=== PATIENT | male | born 1995 | race Caucasian/White ===

== ENCOUNTER 2016-12-20 17:51 | Emergency (ER) | payer BC ==
[2016-12-20 17:58] VITALS: RESP 18
--- NOTE | 2016-12-20 18:09 | ED ---
Psych HPI - General Source: patient, RN notes reviewed Mode of arrival: ambulatory Limitations: no limitations <Ar Armstrong - Last Filed: 12/20/16 18:07> <Ramona Schulz - Last Filed: 12/20/16 21:16> - General Chief Complaint: Psychiatric Symptoms Stated Complaint: mental health Time Seen by Provider: 12/20/16 18:03 - History of Present Illness Initial Comments: This a 21-year-old male presents emergency Department with chief complaint depression suicidal ideation. Patient states her last 5 months felt suicidal has no exact plan to hurt himself. He states that he is trying to cut his right thigh with this he he did not break the skin. Patient states he has seen psychiatrists ulcers in the past and was on medication but states is not on any current medications. Patient does abuse Adderall, cocaine and marijuana. Patient states he has not used any in a few days. Patient denies any physical complaints denies any chest pain, shortness breath, headache, dizziness denies any alcohol abuse no homicidal ideation. (Ar Armstrong) Review of Systems ROS Other: All systems not noted in ROS Statement are negative. <Ar Armstrong - Last Filed: 12/20/16 18:07> ROS Other: All systems not noted in ROS Statement are negative. <Ramona Schulz - Last Filed: 12/20/16 21:16> ROS Statement: Those systems with pertinent positive or pertinent negative responses have been documented in the HPI. Past Medical History Additional Past Medical History / Comment(s): depression bipolar History of Any Multi-Drug Resistant Organisms: None Reported Past Surgical History: No Surgical Hx Reported Past Psychological History: Bipolar, Depression Smoking Status: Current every day smoker Past Alcohol Use History: None Reported Past Drug Use History: Cocaine, Marijuana, Prescription Drug Abuse <Ar Armstrong - Last Filed: 12/20/16 18:07> General Exam Limitations: no limitations General appearance: alert, in no apparent distress Head exam: Present: atraumatic, normocephalic, normal inspection Eye exam: Present: normal appearance, PERRL, EOMI. Absent: scleral icterus, conjunctival injection, periorbital swelling ENT exam: Present: normal exam, normal oropharynx, mucous membranes moist, TM's normal bilaterally, normal external ear exam Neck exam: Present: normal inspection, full ROM. Absent: tenderness, meningismus, lymphadenopathy Respiratory exam: Present: normal lung sounds bilaterally. Absent: respiratory distress, wheezes, rales, rhonchi, stridor Cardiovascular Exam: Present: regular rate, normal rhythm, normal heart sounds. Absent: systolic murmur, diastolic murmur, rubs, gallop, clicks GI/Abdominal exam: Present: soft, normal bowel sounds. Absent: distended, tenderness, guarding, rebound, rigid Neurological exam: Present: alert, oriented X3, CN II-XII intact Psychiatric exam: Present: depressed Skin exam: Present: warm, dry, intact, normal color. Absent: rash <Ar Armstrong - Last Filed: 12/20/16 18:07> Medical Decision Making <Ar Armstrong - Last Filed: 12/20/16 18:07> <Ramona Schulz - Last Filed: 12/20/16 21:16> - Medical Decision Making This case was signed out to me by MARY Carson. Psychiatry did evaluate the patient and they are going to discharge the patient home with a referral sheet. Patient does contract to safety. At this time there is no suicidal or homicidal ideations. Patient will be discharged into the mother's care and does agree to return if any of these thoughts occur. Patient mother on agreement plan all questions have been answered. They will be discharged. ( Ramona Schulz) - Lab Data Lab Results 12/20/16 Range/Units 19:00 Urine Opiates Screen Not Detected (NotDetected) Ur Oxycodone Screen Not Detected (NotDetected) Urine Methadone Screen Not Detected (NotDetected) Ur Propoxyphene Screen Not Detected (NotDetected) Ur Barbiturates Screen Not Detected (NotDetected) U Tricyclic Antidepress Not Detected (NotDetected) Ur Phencyclidine Scrn Not Detected (NotDetected) Ur Amphetamines Screen Detected H (NotDetected) U Methamphetamines Scrn Not Detected (NotDetected) U Benzodiazepines Scrn Not Detected (NotDetected) Urine Cocaine Screen Not Detected (NotDetected) U Marijuana (THC) Screen Detected H (NotDetected) Disposition <Ar Armstrong - Last Filed: 12/20/16 18:07> Time of Disposition: 21:16 <Ramona Schulz - Last Filed: 12/20/16 21:16> Clinical Impression: Depression Disposition: HOME SELF-CARE Condition: Stable Instructions: Depression (ED) Additional Instructions: If you developed any suicidal or homicidal ideation please return to the emergency Department immediately. Please follow up with family doctor if symptoms have not improved over the next two days. Please return to the emergency room if your symptoms increase or worsen or for any other concerns. Referrals: Joe Lau DO [Primary Care Provider] - 1-2 days
[2016-12-20 21:29] VITALS: BP 130/65; PULSE 92; TEMP 98.4
== END 2016-12-20 21:20 | disposition home or self-care (01) ==
LOC: EC 17:51
DX: F32.9 Major depressive disorder, single episode, unspecified (principal); F17.200 Nicotine dependence, unspecified, uncomplicated
CPT/HCPCS: 80306; 82075; 99285

== ENCOUNTER 2018-06-03 19:21 | Emergency (ER) | payer BC ==
--- NOTE | 2018-06-03 21:05 | ED ---
Psych HPI - General Chief Complaint: Psychiatric Symptoms Stated Complaint: Mental Health Time Seen by Provider: 06/03/18 19:37 Source: patient Mode of arrival: ambulatory - History of Present Illness Initial Comments: 22-year-old male patient presents to the emergency department today for evaluation of depression and suicidal ideation. Patient states he has been depressed for many years and has also had thoughts of suicide for many years. Patient states that he is hoping to be started on an antidepressant medication today. States that he does not have any specific plan to take his life and has had no change to his symptoms. States that his physical health is [place] he now wants to work on his mental health. Denies currently receiving outpatient counseling or therapy. States he hasn't had antidepressant medication at in the last 2 years. Patient states he did attempt to commit suicide approximately 5 years ago but has no recent attempts. Denies any hallucinations. Denies any alcohol or drug use. Denies any current physical symptoms or concerns. - Related Data Home Medications Medication Instructions Recorded Confirmed No Known Home Medications 12/20/16 06/03/18 Allergies Allergy/AdvReac Type Severity Reaction Status Date / Time No Known Allergies Allergy Verified 06/03/18 20:11 Review of Systems ROS Statement: Those systems with pertinent positive or pertinent negative responses have been documented in the HPI. ROS Other: All systems not noted in ROS Statement are negative. Past Medical History Additional Past Medical History / Comment(s): depression bipolar History of Any Multi-Drug Resistant Organisms: None Reported Past Surgical History: No Surgical Hx Reported Past Psychological History: Bipolar, Depression, PTSD Smoking Status: Former smoker Past Alcohol Use History: Occasional Past Drug Use History: Cocaine, Marijuana, Prescription Drug Abuse General Exam Limitations: no limitations General appearance: alert, in no apparent distress, other (This is a well- developed, well-nourished adult male patient in no acute distress. Vital signs upon presentation are temperature 98.3F, pulse 92, respirations 21, blood pressure 130/86, pulse ox 97% on room air.) Eye exam: Present: normal appearance, PERRL, EOMI. Absent: scleral icterus, conjunctival injection, periorbital swelling Respiratory exam: Present: normal lung sounds bilaterally. Absent: respiratory distress, wheezes, rales, rhonchi, stridor Cardiovascular Exam: Present: regular rate, normal rhythm, normal heart sounds. Absent: systolic murmur, diastolic murmur, rubs, gallop, clicks GI/Abdominal exam: Present: soft, normal bowel sounds. Absent: distended, tenderness, guarding, rebound, rigid Neurological exam: Present: alert, oriented X3, CN II-XII intact Psychiatric exam: Present: normal affect, normal mood Skin exam: Present: warm, dry, intact, normal color. Absent: rash Course Vital Signs 06/03/18 06/03/18 19:24 21:34 Temperature 98.3 F 98.6 F Pulse Rate 92 72 Respiratory 21 18 Rate Blood Pressure 130/86 120/80 O2 Sat by Pulse 97 98 Oximetry Medical Decision Making - Medical Decision Making 22-year-old male patient presented to the emergency department today for evaluation of depression and suicidal ideation. Symptoms are unchanged over the last couple of years. Patient is requesting antidepressant medication. He was seen and evaluated by emergency psychiatric services. They did form an outpatient plan for the patient. He does agree to follow-up with his primary care physician to discuss antidepressant medication use. He is instructed to follow up for outpatient counseling. Patient denies any current suicidal plan, denies any change to his symptoms. It is felt he is safe for discharge at this time to Return parameters were discussed in detail. He verbalizes understanding and agrees with this plan. Disposition Clinical Impression: Depression Disposition: HOME SELF-CARE Condition: Good Instructions: Depression (ED) Additional Instructions: Follow up with your primary care physician for recheck in 1-2 days. Follow up with outpatient mental health services as directed. Return to the emergency department immediately for any new, worsening or concerning symptoms. Is patient prescribed a controlled substance at d/c from ED?: No Referrals: Joe Lau DO [Primary Care Provider] - 1-2 days Time of Disposition: 21:05
[2018-06-03 21:35] VITALS: BP 120/80; PULSE 72; RESP 18; TEMP 98.6
== END 2018-06-03 21:15 | disposition home or self-care (01) ==
LOC: EC 19:21
DX: F32.9 Major depressive disorder, single episode, unspecified (principal); Z87.891 Personal history of nicotine dependence
CPT/HCPCS: 82075; 99284

== ENCOUNTER 2022-04-02 18:28 | Inpatient (IN) | payer BC, OTHER ==
--- NOTE | 2022-04-02 20:38 | ED ---
General Adult HPI - General Chief complaint: Psychiatric Symptoms Stated complaint: suicidal Time Seen by Provider: 04/02/22 20:02 Source: patient, RN notes reviewed Mode of arrival: ambulatory Limitations: no limitations - History of Present Illness Initial comments: 26-year-old male presents to the emergency department for mental health evaluation. Patient states he is feeling hopeless and lost. Patient reports self harm today in which he put the strap of his purse around his neck while in the presence of his sister. States he was frustrated and overwhelmed; vigorously scratched his chest and frequently bites his hands in these situations. Patient reports frequent suicidal thoughts, but has not previously attempted to harm himself. Is not working. Does not have any meaningful relationships. Does have family, though feels that their "tough love" approach is not effective. States he does not have a PCP or mental health provider. Does not take any medicines daily. Uses marijuana regularly. Denies any current drug or alcohol abuse. - Related Data Home Medications Medication Instructions Recorded Confirmed No Known Home Medications 12/20/16 06/03/18 Allergies Allergy/AdvReac Type Severity Reaction Status Date / Time No Known Allergies Allergy Verified 04/03/22 04:47 Review of Systems ROS Statement: Those systems with pertinent positive or pertinent negative responses have been documented in the HPI. ROS Other: All systems not noted in ROS Statement are negative. Past Medical History Additional Past Medical History / Comment(s): depression bipolar History of Any Multi-Drug Resistant Organisms: None Reported Past Surgical History: No Surgical Hx Reported Past Psychological History: Bipolar, Depression, PTSD Smoking Status: Current every day smoker Past Alcohol Use History: Occasional Past Drug Use History: Cocaine, Marijuana, Prescription Drug Abuse General Exam Limitations: no limitations General appearance: alert, in no apparent distress Head exam: Present: atraumatic, normocephalic, normal inspection Eye exam: Present: normal appearance, PERRL, EOMI. Absent: scleral icterus, conjunctival injection, periorbital swelling, periorbital tenderness Neck exam: Present: other (superficial abrasion on the left side of the neck; no swelling). Absent: tenderness, meningismus, full ROM Respiratory exam: Present: normal lung sounds bilaterally. Absent: respiratory distress, wheezes, rales, rhonchi, stridor, chest wall tenderness Cardiovascular Exam: Present: regular rate, normal rhythm, normal heart sounds. Absent: systolic murmur, diastolic murmur, rubs, gallop, clicks GI/Abdominal exam: Present: soft, normal bowel sounds. Absent: distended, tenderness, guarding, rebound, rigid Extremities exam: Present: normal capillary refill, other (has reddened areas on bilateral hands consistent with repetitive irritation) Neurological exam: Present: alert, oriented X3, normal gait Psychiatric exam: Present: anxious Skin exam: Present: warm, dry, normal color, abrasion (multiple superificial abrasions on chest wall) Course Vital Signs 04/02/22 04/02/22 19:51 20:05 Temperature 97.8 F 97.9 F Pulse Rate 88 74 Respiratory 16 16 Rate Blood Pressure 125/86 122/84 O2 Sat by Pulse 97 100 Oximetry - Reevaluation(s) Reevaluation #1: 04/02/22 21:06 Able tolerate oral intake without difficulty. Abrasions on chest and neck remain superficial. No swelling or airway concerns. Medical Decision Making - Medical Decision Making This is an anxious 26-year-old who presents to the emergency department for mental health evaluation. Upon exam, patient is restless and appears frustrated. Physical exam findings reveal multiple areas of superficial abrasions on the chest wall, neck, and bilateral hands. Wounds were superficial and did not require any treatment. Patient states these are self induced due to an inability to cope with stress. Reports attempting self-harm today therefore came to the emergency department seeking help. He is cooperative with plan of care. Drug screen was positive for marijuana. Alcohol is negative. Covid is not detected. Patient was medically cleared for psychiatric evaluation. Patient was admitted to the mental health unit for further evaluation and treatment. Attending: Mirna. - Lab Data Result diagrams: 04/03/22 10:22 04/03/22 10:22 Lab Results 04/02/22 04/03/22 Range/Units 23:47 00:52 Urine Opiates Screen Not Detected (NotDetected) Ur Oxycodone Screen Not Detected (NotDetected) Urine Methadone Screen Not Detected (NotDetected) Ur Propoxyphene Screen Not Detected (NotDetected) Ur Barbiturates Screen Not Detected (NotDetected) U Tricyclic Antidepress Not Detected (NotDetected) Ur Phencyclidine Scrn Not Detected (NotDetected) Ur Amphetamines Screen Not Detected (NotDetected) U Methamphetamines Scrn Not Detected (NotDetected) U Benzodiazepines Scrn Not Detected (NotDetected) Urine Cocaine Screen Not Detected (NotDetected) U Marijuana (THC) Screen Detected H (NotDetected) Coronavirus (PCR) Not Detected (Not Detectd) Disposition Clinical Impression: Abrasion of chest wall, Suicidal ideation Disposition: TRANSFER TO PSYCH HOSP/UNIT Condition: Serious Decision Date: 04/03/22 Decision Time: 01:55
[2022-04-03 00:04] LABS: Amphetamine Screen,Urine Not Detected (NotDetected); Barbiturate Screen,Urine Not Detected (NotDetected); Benzodiazepines Screen,Urine Not Detected (NotDetected); Cocaine Screen,Urine Not Detected (NotDetected); Methadone Screen, Urine Not Detected (NotDetected); Opiate Screen,Urine Not Detected (NotDetected); Oxycodone Screen, Urine Not Detected (NotDetected); Phencyclidine Screen,Urine Not Detected (NotDetected); Tricyclic Antidepressant,Urine Not Detected (NotDetected); Urn Cannabinoid Scrn Detected (NotDetected)
[2022-04-03] MEDS ORDERED: MAGNESIUM HYDROXIDE 2,400 MG/10 ML CUP PO PRN (01:59)
[2022-04-03] MEDS ORDERED: HALOPERIDOL LACTATE 5 MG/ML 1 ML VIAL IM PRN (01:59)
[2022-04-03] MEDS ORDERED: LORazepam 1 MG TAB PO PRN (01:59)
[2022-04-03] MEDS ORDERED: ACETAMINOPHEN TAB 325 MG TAB PO PRN (01:59)
[2022-04-03] MEDS ORDERED: MAG HYDROX/AL HYDROX/SIMETH 30 ML CUP PO PRN (01:59)
[2022-04-03] MEDS ORDERED: LORazepam 1 MG/0.5 ML VIAL IM PRN (02:05)
[2022-04-03] MEDS ORDERED: haloperidoL 5 MG TAB PO PRN (02:06)
[2022-04-03 11:43] LABS: Basophils # (A) 0.1 k/uL (0-0.2); Basophils % (A) 1 %; Eosinophils # (A) 0.3 k/uL (0-0.7); Eosinophils % (A) 5 %; HCT 44.8 % (39.0-53.0); HGB 15.7 gm/dL (13.0-17.5); Lymphocytes # (A) 1.6 k/uL (1.0-4.8); Lymphocytes % (A) 25 %; MCH 31.8 pg (25.0-35.0); MCHC 35.2 g/dL (31.0-37.0); MCV 90.5 fL (80.0-100.0); Mean Platelet Volume 8.1; Monocytes # (A) 0.6 k/uL (0-1.0); Monocytes % (A) 9 %; Neutrophils # (A) 3.5 k/uL (1.3-7.7); Neutrophils % (A) 56 %; Platelet Count 244 k/uL (150-450); RBC 4.95 m/uL (4.30-5.90); RDW 12.4 % (11.5-15.5); WBC 6.3 k/uL (3.8-10.6)
[2022-04-03 11:59] LABS: ALT 27 U/L (4-49); AST 55 U/L (17-59); African American GFR (CKD) >90 (>60 ml/min/1.73 sqM); Albumin 5.2 g/dL (3.5-5.0); Alkaline Phosphatase 68 U/L (38-126); Anion Gap 10 mmol/L; Blood Urea Nitrogen 12 mg/dL (9-20); Calcium 9.2 mg/dL (8.4-10.2); Carbon Dioxide 25 mmol/L (22-30); Chloride 103 mmol/L (98-107); Glucose 92 mg/dL (74-99); Non-African American GFR(CKD) 87 (>60 ml/min/1.73 sqM); Sodium 138 mmol/L (137-145); Total Bilirubin 3.5 mg/dL (0.2-1.3)
--- NOTE | 2022-04-03 13:23 | P.CONS ---
History of Present Illness - Reason for Consult Consult date: 04/03/22 Medical management Requesting physician: Joe Haq - Chief Complaint Depressed, suicidal - History of Present Illness This is a 26-year-old patient, follows a Dr. Lau. Patient was living with his cousin. Silviano, unsure when released from here, that he will go. Patient reported the ER feeling hopeless and lost. He reported self-harm. With the strap office percent on his neck by the presence of her sister. He was frustrated and overwhelmed. Vigorously scratched his chest infrequently but has had. Having suicidal thoughts. Patient not employed. Does marijuana. Denies any other drugs. Review of systems: GEN.: None EYES: None HEENT: None NECK: None RESPIRATORY: None CARDIOVASCULAR: None GASTROINTESTINAL: Heartburn GENITOURINARY: None MUSCULOSKELETAL: None LYMPHATICS: None HEMATOLOGICAL: None PSYCHIATRY: Depressed NEUROLOGICAL: No sleeping well Past medical history to include: Bipolar depression, PTSD Social history: Currently vaping marijuana. In the past has done cocaine in [facility]. Not employed. Currently staying with his cousin Family history: Reviewed, noncontributory to presentation Physical examination: VITAL SIGNS: 97.4, 84, 16, 11 8 x 58, 98% room air] GENERAL: BMI 24.2, sitting up in chair comfortable. EYES: Pupils equal. Conjunctiva normal. HEENT: External appearance of nose and ears normal, oral cavity grossly normal. NECK: JVD not raised; masses not palpable. HEART: First and second heart sounds are normal; no edema. LUNGS: Respiratory rate normal; clear to auscultation. ABDOMEN: Soft, nontender, liver spleen not palpable, no masses palpable. PSYCH: Alert and oriented x3; mood and affect bit anxiousl. MUSCULOSKELETAL:No Clubbing/cyanosis;muscles-grossly intact NEUROLOGICAL: Cranial nerves grossly intact; no facial asymmetry, power and sensation grossly intact. LYMPHATICS: No lymph nodes palpable in the axilla and neck INVESTIGATIONS, reviewed in the clinical context: White count 6.3 bun 15.7 platelets 244 potassium 4 creatinine 1.16 Urine culture positive for marijuana COVID 19 PCR: Not detected Assessment and plan: -Bipolar, depressed with suicidal ideation Follow medications with psychiatry -Insomnia secondary to depression Should improve with antidepressants -GERD Pepcid -Recreational use of marijuana Discussed with patient. Pepcid. Antidepressants per psychiatry. Discussed with patient about getting a job. Encouraged. Patient should follow up with PCP upon discharge Thank you Past Medical History Additional Past Medical History / Comment(s): depression bipolar History of Any Multi-Drug Resistant Organisms: None Reported Past Surgical History: No Surgical Hx Reported Past Psychological History: Bipolar, Depression, PTSD Smoking Status: Vaper Past Alcohol Use History: Occasional Past Drug Use History: Cocaine, Marijuana, Prescription Drug Abuse Medications and Allergies Home Medications Medication Instructions Recorded Confirmed Type No Known Home Medications 12/20/16 06/03/18 History Allergies Allergy/AdvReac Type Severity Reaction Status Date / Time No Known Allergies Allergy Verified 04/03/22 04:47 Physical Exam Vitals: Vital Signs Temp Pulse Pulse Resp BP BP Pulse Ox 04/03/22 02:38 97.4 F L 84 16 118/58 98 04/02/22 20:05 97.9 F 74 16 122/84 100 04/02/22 19:51 97.8 F 88 16 125/86 97 Intake and Output 04/02/22 04/03/22 04/03/22 22:59 06:59 14:59 Other: Weight 72.575 kg 74.2 kg Results CBC & Chem 7: 04/03/22 10:22 04/03/22 10:22 Labs: Abnormal Lab Results - Last 24 Hours (Table) 04/02/22 Range/Units 23:47 U Marijuana (THC) Screen Detected H (NotDetected)
[2022-04-03 14:30] LABS: Appearance,Urine Clear (Clear); Bilirubin,Urine Negative (Negative); Blood,Urine Negative (Negative); Color,Urine Yellow; Glucose,Urine (UA) Negative (Negative); Ketones,Urine 1+ (Negative); Leukocyte Esterase,Urine Negative (Negative); Nitrite,Urine Negative (Negative); Protein,Urine Negative (Negative); Specific Gravity,Urine 1.013 (1.001-1.035); Urobilinogen,Urine <2.0 mg/dL (<2.0)
[2022-04-03 16:26] LABS: Chol/HDL Ratio 3.82 Ratio; LDL Cholesterol,Calculated 113.2 mg/dL (0.0-131.0); VLDL Calculation 16.72 mg/dL (5.00-40.00)
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
[2022-04-03] MEDS: QUEtiapine 25 MG TAB PO SCH (20:58)
[2022-04-03] MEDS ORDERED: ESCITALOPRAM 5 MG TAB PO SCH (21:00)
[2022-04-04] MEDS: QUEtiapine 25 MG TAB PO SCH (21:01)
[2022-04-04] MEDS: ESCITALOPRAM 10 MG TAB PO SCH (21:01)
--- NOTE | 2022-04-04 21:30 | P.PN ---
Progress Note - Text Progress Note Date: 04/04/22 Interval history: Patient was seen attending group today and was directable and agreeable to speak with sign writer hand. He reports improving mood today and improved sleep since starting the Seroquel last night. He is still anxious. At this time patient denies any suicidal or homicidal ideation, intent or plan. Denies any auditory or visual hallucinations. Patient denies any side effects from the medications and has been compliant with meds. Mental status exam: General Appearance: Patient appears to be stated age, slender, tattoos, long hair, improving hygiene and grooming, has a healing red ligature lizbeth on his neck. Behavior: Patient is seated without any agitated behavior. He is pleasant and cooperates. Speech: Patient's speech is fluent and non-pressured. Mood/Affect: Mood is improving today, affect is bright. Suicidality/Homicidality: Patient denies having any homicidal ideation intent or plan. Denies any suicidal ideations intent or plan now, but is s/p suicide attempt by strangulation. Perceptions: Patient denies any visual hallucinations and denies any auditory hallucinations. Though content/process: There is no evidence of any delusional thought content and thought process is linear and goal-directed. Memory and concentration: AOX3, grossly intact for the purposes of this session. Judgment and insight: improving mildly Assessment/Plan: Continue with current diagnosis. Patient continues to meet criteria for inpatient psychiatric admission for symptom stabilization and safety. Increase Lexapro to 10 mg QHS for anxiety/depression. Monitor for medication compliance and for any psychotropic medication side effects. Will continue to monitor ongoing response to treatment. Encouraged participation in milieu.
--- NOTE | 2022-04-05 16:10 | P.PN ---
Progress Note - Text Progress Note Date: 04/05/22 Interval History: Patient was seen taking part in group today and was directable and agreeable to speak with television writer in the office. Patient states that he is doing fairly well on the medications at this time. He states that his anxiety and depression have been improving. He claims that he is not reporting any suicidal thoughts at this time. He reflected back on what had occurred prior to coming into the hospital and the incidents that happened. He states that he is getting better care at this hospital than the previous one. He states that he is going to groups and trying to participate. He had a soft tone of voice however didn't sound fairly optimistic. Claims that he is sleeping better at this time with the Seroquel. At this time patient denies any suicidal or homical ideations, intent or plan. Patient denies any auditory, visual hallucinations and denies any paranoia or delusions. Patient denies any side effects from the medications and has been compliant with meds. Mental Status Exam: General Appearance: Patient appears to be stated age, slender, tattoos, long hair, fair hygiene and grooming. Behavior: Patient is seated without any agitated behavior. He is pleasant , improving Speech: Patient's speech is fluent and non-pressured. Mood/Affect: Patient reports their mood is improving mildly, affect is appropriate Suicidality/Homicidality: Patient denies having any homicidal ideation intent or plan. Denies any suicidal ideations intent or plan now Perceptions: Patient denies any visual hallucinations and denies any auditory hallucinations. Though content/process: There is no evidence of any delusional thought content and thought process is linear and goal-directed. Memory and concentration: AOX3, grossly intact for the purposes of this session Judgment and insight: Fair IMPRESSIONS: Major depressive disorder, recurrent without psychotic features Generalized anxiety disorder with panic attacks Cannabis use disorder, moderate nicotine dependence Plan: -Patient continues to meet criteria for inpatient psychiatric admission for symptom stabilization and safety. Patient has signed adult voluntary form and medication consent and was placed in patient's chart. -Medications: continue Lexapro 10 mg QHS for anxiety/depression, Seroquel 25 mg QHS for sleep/mood stabilization -When necessary Ativan and Haldol for agitation/aggression. -NRT - nicotine patch -SW on board for discharge planning. Encouraged the patient to participate in milieu. Likely discharge tomorrow if patient continues to improve.
[2022-04-05] MEDS: ESCITALOPRAM 10 MG TAB PO SCH (21:08)
[2022-04-05] MEDS: QUEtiapine 25 MG TAB PO SCH (21:08)
[2022-04-06 06:26] VITALS: BP 111/61; PULSE 56; RESP 17; TEMP 98.7
--- NOTE | 2022-04-06 09:37 | P.DS ---
Providers Date of admission: 04/03/22 01:54 Expected date of discharge: 04/06/22 Attending physician: Joe Haq MD Consults: 04/03/22 01:59 Consult Physician Routine Consulting Provider: Rick Torres Consult Reason/Comments: H&P for mental health admission Do you want consulting provider notified?: Yes, Notify in am Primary care physician: Joe Lau - Discharge Diagnosis(es) (1) Major depressive disorder without psychotic features Current Visit: Yes Status: Acute Priority: High (2) Generalized anxiety disorder Current Visit: Yes Status: Acute Priority: Medium (3) Cannabis use disorder, moderate, dependence Current Visit: Yes Status: Acute Priority: Medium (4) Nicotine dependence Current Visit: Yes Status: Acute Priority: Low Hospital Course: Admission HPI: Admission note was completed by Dr Mitchell "Patient is a 26 year old single male with history of depression who attempted suicide. Patient presented to the hospital Per EPS notes, "Presented to [facility] after attempting to strangle self with purse string and attempting to harm self by scratching and biting self. Ligatures lorenzo are noted on neck and multiple scratches to chest. Patient anxious and tearful, stating has hopping from Mom's house to cousins house feeling overwhelmed as family does not want him and he is stuck and cannot move forward. Patient reports depression as a 9/10 and with constant suicidal thoughts. Patient has no goals, and hopeless at this time. Also reports to this music writer that he is bisexual and is constantly bullied and feels is paranoid that someone will hurt or want to kill him." He reports he got into a fight with his cousin who he is living with because they feel they have a toxic household; he reports he got angry. He reports his mood is "compliant" and somewhat depressed, lost interest in working, difficulty concentrating, difficulty falling asleep, fair energy and motivation, fair appetite. He reports panic attacks with tingling/fuzzy, short of breath, sweating, heart pounding, feeling like he's going to (only when in a car), racing thoughts. He tends to worry, difficult to control worries, difficulty falling asleep, restless/on edge, muscle tension, easily fatigued. Patient denies any suicidal or homicidal ideation, intent or plan. At this time patient denies any auditory or visual hallucinations. Patient denies any flight of ideas racing thoughts and increased in goal directed behavior. UDS positive for marijuana. He smokes marijuana daily since he was 16 year old, smokes all day. He vapes nicotine. He denies alcohol use currently, reports he stopped drinking about 2 months ago. He has tried cocaine in the past but not regular use." Hospital course: Upon admission to the unit patient was directable and agreeable to commence treatment and signed adult voluntary form . Patient got along well with other patients on the unit and followed unit protocol. Patient was compliant with the medications and denied any side effects throughout hospital course. Patient was started on Lexapro 10 mg daily at bedtime for anxiety/mood, Seroquel 25 mg daily at bedtime for insomnia/mood stabilization. Patient spoke of his stressors and engaged in therapy both group and individual. Patient was also seen by medical team for history and physical exam. Throughout the course of the hospitalization patient gradually improved with regards to mood, anxiety, sleep and became more future oriented with improved insight and judgment. On the day of discharge patient denied any suicidal or homicidal ideations intent or plan denied any auditory or visual hallucinations. Patient endorsed wanting to live for his future and his passions. The patient denied any access to guns or weapons. Patient denied any paranoia and did not endorse any delusions. Patient does have a significant history of substance abuse and was counseled on abstaining from all substances including alcohol and marijuana. Patient was also counseled on the medications and need for regular compliance and was encouraged to follow-up with their outpatient appointment for mental health and also for primary care. Prior to discharge a family meeting will be arranged by social organization professor to answer any questions and ensure safety upon discharge. Mental status exam: General Appearance: Patient appears to have glasses, longer hair, stated age is alert, pleasant, and cooperative. Patient is in no acute distress and has improved hygiene and grooming Behavior: Patient is calmly seated without any agitated behavior. Speech: Patient's speech is fluent and nonpressured. Mood/Affect: Patient reports their mood is "better", affect is congruent and euthymic. Suicidality/Homicidality: Patient denies having any suicidal or homicidal ideation intent or plan. Perceptions: Patient denies any auditory or visual hallucinations. Though content/process: There is no evidence of any delusional thought content and thought process is linear and goal-directed. more future oriented Memory and concentration: AOX3, grossly intact for the purposes of this session. Can spell "WORLD" backwards correctly. Judgment and insight: improved with guarded prognosis Impression: Major depressive disorder, recurrent without psychotic features Generalized anxiety disorder Cannabis use disorder moderate dependence Nicotine dependence Plan: -Continue with discharge today as patient has improved and stabilized psychiatrically and is not currently an imminent threat to himself and/or others. -Continue medications: Lexapro 10 mg daily at bedtime for mood/anxiety, Seroquel 25 mg daily at bedtime for mood stabilization/sleep. -Patient was counseled on the need for medication compliance and appropriate follow-up at mental health and also primary care for medical issues. Patient verbalized understanding and agreed. -Social work to arrange for and conduct family meeting to ensure safety upon discharge and answer any questions/concerns. Social work also to arrange for patients follow up appointments for psychiatric care along with follow up with primary care provider. -Patient counseled on abstaining from recreational drugs and marijuana and alcohol. Was informed/educated on the adverse effects on their physical and mental health. Patient verbally agreed and understood. Patient was offered substance abuse treatment however declined at this time. -Patient was instructed to return to the hospital or seek immediate medical care if their psychiatric or medical symptoms do worsen or reoccur. Allergies Allergy/AdvReac Type Severity Reaction Status Date / Time No Known Allergies Allergy Verified 04/03/22 04:47 Laboratory Results WBC 6.3 k/uL (3.8-10.6) 04/03/22 10:22 RBC 4.95 m/uL (4.30-5.90) 04/03/22 10:22 Hgb 15.7 gm/dL (13.0-17.5) 04/03/22 10:22 Hct 44.8 % (39.0-53.0) 04/03/22 10:22 MCV 90.5 fL (80.0-100.0) 04/03/22 10:22 MCH 31.8 pg (25.0-35.0) 04/03/22 10: MCHC 35.2 g/dL (31.0-37.0) 04/03/22 10:22 RDW 12.4 % (11.5-15.5) 04/03/22 10:22 Plt Count 244 k/uL (150-450) 04/03/22 10:22 MPV 8.1 04/03/22 10:22 Neutrophils % 56 % 04/03/22 10:22 Lymphocytes % 25 % 04/03/22 10:22 Monocytes % 9 % 04/03/22 10:22 Eosinophils % 5 % 04/03/22 10:22 Basophils % 1 % 04/03/22 10:22 Neutrophils # 3.5 k/uL (1.3-7.7) 04/03/22 10:22 Lymphocytes # 1.6 k/uL (1.0-4.8) 04/03/22 10:22 Monocytes # 0.6 k/uL (0-1.0) 04/03/22 10:22 Eosinophils # 0.3 k/uL (0-0.7) 04/03/22 10:22 Basophils # 0.1 k/uL (0-0.2) 04/03/22 10:22 Sodium 138 mmol/L (137-145) 04/03/22 10:22 Potassium 4.0 mmol/L (3.5-5.1) 04/03/22 10:22 Chloride 103 mmol/L (98-107) 04/03/22 10:22 Carbon Dioxide 25 mmol/L (22-30) 04/03/22 10:22 Anion Gap 10 mmol/L 04/03/22 10:22 BUN 12 mg/dL (9-20) 04/03/22 10:22 Creatinine 1.16 mg/dL (0.66-1.25) 04/03/22 10:22 Est GFR (CKD-EPI)AfAm >90 (>60 ml/min/1.73 sqM) 04/03/22 10:22 Est GFR (CKD-EPI)NonAf 87 (>60 ml/min/1.73 sqM) 04/03/22 10:22 Glucose 92 mg/dL (74-99) 04/03/22 10:[address] Glu mg/dL 111 04/03/22 10:22 Hemoglobin A1c 5.5 % (0.0-6.0) 04/03/22 10:22 Calcium 9.2 mg/dL (8.4-10.2) 04/03/22 10:22 Total Bilirubin 3.5 mg/dL (0.2-1.3) H 04/03/22 10:22 AST 55 U/L (17-59) 04/03/22 10:22 ALT 27 U/L (4-49) 04/03/22 10:22 Alkaline Phosphatase 68 U/L (38-126) 04/03/22 10:22 Total Protein 8.0 g/dL (6.3-8.2) 04/03/22 10:22 Albumin 5.2 g/dL (3.5-5.0) H 04/03/22 10:22 Triglycerides 83.60 mg/dL (0.00-149.00) 04/03/22 10:22 Cholesterol 176.00 mg/dL (0.00-200.00) 04/03/22 10:22 LDL Cholesterol, Calc 113.2 mg/dL (0.0-131.0) 04/03/22 10:22 VLDL Cholesterol, Calc 16.72 mg/dL (5.00-40.00) 04/03/22 10:22 HDL Cholesterol 46.10 mg/dL (40.00-60.00) 04/03/22 10:22 Cholesterol/HDL Ratio 3.82 Ratio 04/03/22 10: TSH 1.340 mIU/L (0.465-4.680) 04/03/22 10:22 Urine Color Yellow 04/03/22 12:00 Urine Appearance Clear (Clear) 04/03/22 12:00 Urine pH 6.0 (5.0-8.0) 04/03/22 12:00 Ur Specific Anderson 1.013 (1.001-1.035) 04/03/22 12:00 Urine Protein Negative (Negative) 04/03/22 12:00 Urine Glucose (UA) Negative (Negative) 04/03/22 12:00 Urine Ketones 1+ (Negative) H 04/03/22 12:00 Urine Blood Negative (Negative) 04/03/22 12:00 Urine Nitrite Negative (Negative) 04/03/22 12:00 Urine Bilirubin Negative (Negative) 04/03/22 12:00 Urine Urobilinogen <2.0 mg/dL (<2.0) 04/03/22 12:00 Ur Leukocyte Esterase Negative (Negative) 04/03/22 12:00 Urine Opiates Screen Not Detected (NotDetected) 04/02/22 23:47 Ur Oxycodone Screen Not Detected (NotDetected) 04/02/22 23:47 Urine Methadone Screen Not Detected (NotDetected) 04/02/22 23:47 Ur Propoxyphene Screen Not Detected (NotDetected) 04/02/22 23:47 Ur Barbiturates Screen Not Detected (NotDetected) 04/02/22 23:47 U Tricyclic Antidepress Not Detected (NotDetected) 04/02/22 23:47 Ur Phencyclidine Scrn Not Detected (NotDetected) 04/02/22 23:47 Ur Amphetamines Screen Not Detected (NotDetected) 04/02/22 23:47 U Methamphetamines Scrn Not Detected (NotDetected) 04/02/22 23:47 U Benzodiazepines Scrn Not Detected (NotDetected) 04/02/22 23:47 Urine Cocaine Screen Not Detected (NotDetected) 04/02/22 23:47 U Marijuana (THC) Screen Detected (NotDetected) H 04/02/22 23:47 Coronavirus (PCR) Not Detected (Not Detectd) 04/03/22 00:52 Vital Signs Temp 98.7 F 04/06/22 06:00 Pulse 56 L 04/06/22 06:00 Resp 17 04/06/22 06:00 BP 111/61 04/06/22 06:00 Pulse Ox 98 04/06/22 06:00 FiO2 Patient Condition at Discharge: Stable Plan - Discharge Summary Discharge Rx Participant: Yes New Discharge Prescriptions: New QUEtiapine [SEROquel] 25 mg PO HS 30 Days tab Escitalopram [Lexapro] 10 mg PO HS 30 Days tab Acetaminophen Tab [Tylenol] 650 mg PO Q4HR PRN tab PRN Reason: Pain/Discomfort Discharge Medication List Acetaminophen Tab [Tylenol] 650 mg PO Q4HR PRN tab 04/06/22 [Rx] Escitalopram [Lexapro] 10 mg PO HS 30 Days tab 04/06/22 [Rx] QUEtiapine [SEROquel] 25 mg PO HS 30 Days tab 04/06/22 [Rx] Follow up Appointment(s)/Referral(s): Joe aLu DO [Primary Care Provider] - 1-2 days Patient Instructions/Handouts: How to Stop Smoking (DC), Depression (DC), Cannabis Abuse (DC), Anxiety (GEN), Suicide Prevention (DC) Activity/Diet/Wound Care/Special Instructions: Avoid the use of street drugs and alcohol. Take all prescriptions as prescribed. When you are in need of refills on your medications, please contact your medical provider and/or outpatient psychiatrist to have this done. Please go to scheduled outpatient appointment for aftercare treatment. If symptoms return or become worse, call the crisis line at and/or go to the nearest emergency room for evaluation. Discharge Disposition: HOME SELF-CARE
== END 2022-04-06 12:45 | disposition home or self-care (01) | DRG 885 ==
LOC: EC 18:28 → 3MHU 04-03 01:54
PROVIDERS: ADMIT Psychiatry & Neurology Psychiatry; ATTEND Psychiatry & Neurology Psychiatry
DX: F31.32 Bipolar disorder, current episode depressed, moderate (principal); T71.9XXA Asphyxiation due to unspecified cause, initial encounter; R45.851 Suicidal ideations; F12.20 Cannabis dependence, uncomplicated; F14.11 Cocaine abuse, in remission; Z20.822 Contact with and (suspected) exposure to COVID-19; F41.1 Generalized anxiety disorder; F12.11 Cannabis abuse, in remission; F90.9 Attention-deficit hyperactivity disorder, unspecified type; F43.10 Post-traumatic stress disorder, unspecified; F51.05 Insomnia due to other mental disorder; F41.0 Panic disorder [episodic paroxysmal anxiety]; S10.81XA Abrasion of other specified part of neck, initial encounter; S20.319A Abrasion of unspecified front wall of thorax, initial encounter; F17.290 Nicotine dependence, other tobacco product, uncomplicated; K21.9 Gastro-esophageal reflux disease without esophagitis; Z71.6 Tobacco abuse counseling; Z91.51 Personal history of suicidal behavior; Z91.411 Personal history of adult psychological abuse; Z91.410 Personal history of adult physical and sexual abuse; Z56.0 Unemployment, unspecified; Z71.41 Alcohol abuse counseling and surveillance of alcoholic; Z71.51 Drug abuse counseling and surveillance of drug abuser
CPT/HCPCS: 80053; 80061; 80306; 81003; 82075; 83036; 84443; 85025; 87635; 99285